=== PATIENT | female | born 1995 | race African-American/Black ===

== ENCOUNTER 2018-03-23 10:23 | Emergency (ER) | payer BC ==
[~2018-03-23] VITALS: Ht 157.5 cm; Wt 63.5 kg
[2018-03-23 10:25] VITALS: BP 123/82
[2018-03-23] MEDS ORDERED: AMOXICILLIN 50500 MG PO (11:11)
[2018-03-23] MEDS ORDERED: NAPROSYN500 MG PO (11:11)
== END 2018-03-23 11:27 | disposition home or self-care (01) ==
LOC: ER 10:23
DX: H66.011 Acute suppurative otitis media with spontaneous rupture of ear drum, right ear (principal)